=== PATIENT | female | born 1950 | race Caucasian/White ===

== ENCOUNTER 2017-02-19 11:35 | Emergency (ER) | payer OTHER ==
[~2017-02-19] VITALS: Ht 172.7 cm; Wt 79.4 kg
[~2017-02-19 11:35] MED LIST: ACET-1966 PO; ALPR-429 PO; DOCU240C67 PO; DULO60CA56 PO; ESTR50GE2 TD; ESTRADIOL 0.1 MG TOP; FEXO-72 PO; IBUP800T37 PO; NITR-105 PO; OMEP-114 PO; OMEP-125 PO; OXYC-865 PO; PROG100C PO; ROSU20TA23 PO
[2017-02-19] MEDS ORDERED: LEVO100T95 PO (11:45)
--- NOTE | 2017-02-19 11:46 | ER Report ---
History and Physical Time Seen By MD: 11:44 Hx. of Stated Complaint: [place] like she had an episode of SVT at about 1045. HPI/ROS CC: Tachycardia HPI: 66-year-old female with a past medical history of hypertension, hypothyroidism on thyroid replacement, Alternate pathway presents to the emergency Department with onset of tachycardia at approximately 10:30 this morning. It lasted for approximately 45 minutes. She states that the highest rate was 153 bpm. She then tried Valsalva, carotid massage in the parking lot and her pulse decreased to 130 bpm. Upon arrival to the emergency department her heart rate is 86 bpm. She denies any chest pain chest pressure, diaphoresis, nausea vomiting, slight shortness of breath during episode. She has talked with the clasp machine operator and an electro vice president marketing & development and ablation is not warranted at this time. Patient states that she had a glass of wine last night but has not been eating at any salad bar or [employer] restaurants. We discussed her dietary intake for the last 24-48 hours as far as MSG and sulfates. She is not on any other urinary reasons for her onset of tachycardia. She is due for her thyroid lab testing. ROS: 12 point review of systems essentially negative other than what's mentioned in history of present illness. NURSES AND OLD MEDICAL RECORDS: Reviewed PMH: Reviewed SURGICAL HX: Reviewed FAMILY HX: Noncontributory SOCIAL HX: Patient is lives at home she denies smoking alcohol only on occasional basis or illicit drugs. VITAL SIGNS: Reviewed CONSTITUTIONAL: 66-year-old female in no distress at this time. PHYSICAL EXAM: HEENT: Pupils equal round reactive to light and accommodate, EOMI, tympanic membranes pearly white umbo present with good light reflex. Lips dry mucous membranes moist gums nonbleeding uvula midline and rises equally with phonation, oropharynx noninjected, teeth intact. NECK: Neck supple, thyroid not appreciated, anterior and posterior cervical lymphadenopathy not appreciated. Trachea midline and rises equally with phonation. CARDIAC: S1-S2 regular rate rhythm no murmurs rubs or gallops. LUNGS: Lungs clear bilaterally posteriorly in all norman. Good air movement. ABDOMEN: Abdomen soft, nondistended, bowel sounds active in all 4 quadrants, no bruits noted, no CVA tenderness. MUSCULOSKELETAL: Strength 5 out of 5 x 4 extremities, no deformities noted. NEUROLOGIC: Patient alert and oriented by 3 Allergies: Coded Allergies: Sulfa (Sulfonamide Antibiotics) (Verified Allergy, Intermediate, ITCHING, 02/19/17) Home Meds Reported Medications Levothyroxine Sodium (SYNTHROID) 100 Mcg Tablet, 100 MCG PO QDAY 02/19/17 Ibuprofen (IBUPROFEN) 800 Mg Tablet, 1 TAB PO Q8H for PAIN 05/17/13 Progesterone,Micronized (PROGESTERONE) 100 Mg Capsule, 100 MG PO HS, CAPSULE 05/17/13 Estradiol (ESTROGEL) 50 Gm Gel.contact center agent, 50 GM TD HS 05/17/13 Rosuvastatin Calcium (CRESTOR) 20 Mg Tablet, 20 MG PO HS 05/17/13 Discontinued Reported Medications Nitrofurantoin Monohyd/M-Cryst (MACROBID 100 MG CAPSULE) 100 Mg Capsule, 100 MG PO BID for 5 Days, CAPSULE 05/17/13 Oxycodone Hcl/Acetaminophen (PERCOCET 5-325 MG TABLET) 1 Each Tablet, 1-2 EACH PO Q4H Y for PAIN 05/17/13 Constitutional Vital Sign - Last 24 Hours 02/19/17 11:40 Pulse 85 Resp 20 B/P (MAP) 147/92 O2 Delivery Room Air Medical Decision Making Data Points Result Diagram: 02/19/17 1143 02/19/17 1143 Laboratory Hematology Test 02/19/17 11:43 02/19/17 13:30 Red Blood Count 4.97 M/uL (4.17-5.56) Mean Corpuscular Volume 99.2 fL (80.0-96.0) Mean Corpuscular Hemoglobin 33.5 pg (26.0-33.0) Mean Corpuscular Hemoglobin Concent 33.8 g/dL (32.0-36.0) Red Cell Distribution Width 13.7 % (11.5-14.5) Mean Platelet Volume 8.1 fL (7.2-11.1) Neutrophils (%) (Auto) 62.0 % (39.4-72.5) Lymphocytes (%) (Auto) 26.9 % (17.6-49.6) Monocytes (%) (Auto) 8.3 % (4.1-12.4) Eosinophils (%) (Auto) 1.3 % (0.4-6.7) Basophils (%) (Auto) 1.5 % (0.3-1.4) Nucleated RBC Relative Count (auto) 0.1 /100WBC Neutrophils # (Auto) 6.6 K/uL (2.0-7.4) Lymphocytes # (Auto) 2.9 K/uL (1.3-3.6) Monocytes # (Auto) 0.9 K/uL (0.3-1.0) Eosinophils # (Auto) 0.1 K/uL (0.0-0.5) Basophils # (Auto) 0.2 K/uL (0.0-0.1) Nucleated RBC Absolute Count (auto) 0.01 K/uL Peripheral Blood Smear No Y/N Prothrombin Time 12.3 seconds (12.0-14.4) Prothromb Time International Ratio 0.92 Activated Partial Thromboplast Time 30 seconds (23-35) D-Dimer Quantitative (PE/DVT) 0.34 ug/ml (0-0.50) Sodium Level 136 mmol/L (137-145) Potassium Level 3.9 mmol/L (3.5-5.0) Chloride Level 98 mmol/L (98-107) Carbon Dioxide Level 23 mmol/L (22-31) Blood Urea Nitrogen 12 mg/dl (7-18) Creatinine 0.70 mg/dl (0.52-1.04) Glomerular Filtration Rate Calc > 60.0 Random Glucose 80 mg/dl (75-110) Calcium Level 9.1 mg/dl (8.4-10.2) Magnesium Level 2.0 mg/dl (1.7-2.2) Total Bilirubin 0.6 mg/dl (0.2-1.3) Aspartate Amino Transf (AST/SGOT) 49 U/L (0-35) Alanine Aminotransferase (ALT/SGPT) 40 U/L (0-56) Alkaline Phosphatase 98 U/L (0-126) Troponin I < 0.012 ng/ml B-Type Natriuretic Peptide 9 pg/ml (0-100) Total Protein 7.9 gm/dl (6.3-8.2) Albumin 4.4 g/dl (3.5-5.0) Urine Color Straw Urine Clarity Clear Urine pH 5.0 pH (4.8-9.5) Urine Specific [place] 1.002 Urine Protein Negative mg/dL (NEGATIVE) Urine Glucose (UA) Negative mg/dL (NEGATIVE) Urine Ketones 20 mg/dL (NEGATIVE) Urine Blood Negative (NEGATIVE) Urine Nitrite Negative (NEGATIVE) Urine Bilirubin Negative (NEGATIVE) Urine Urobilinogen Negative mg/dL (0.2-1.9) Urine Leukocyte Esterase Negative (NEGATIVE) Urine RBC None /HPF (0-2/HPF) Urine WBC 1 /HPF (0-5/HPF) Urine Squamous Epithelial Cells Few /LPF (</=FEW) Urine Bacteria Few /HPF (NONE-FEW) Urine Mucus None /HPF (NONE-FEW) Chemistry Test 02/19/17 11:43 02/19/17 13:30 White Blood Count 10.7 k/uL (4.5-11.0) Red Blood Count 4.97 M/uL (4.17-5.56) Hemoglobin 16.7 g/dL (12.0-16.0) Hematocrit 49.3 % (34.0-47.0) Mean Corpuscular Volume 99.2 fL (80.0-96.0) Mean Corpuscular Hemoglobin 33.5 pg (26.0-33.0) Mean Corpuscular Hemoglobin Concent 33.8 g/dL (32.0-36.0) Red Cell Distribution Width 13.7 % (11.5-14.5) Platelet Count 356 K/uL (150-450) Mean Platelet Volume 8.1 fL (7.2-11.1) Neutrophils (%) (Auto) 62.0 % (39.4-72.5) Lymphocytes (%) (Auto) 26.9 % (17.6-49.6) Monocytes (%) (Auto) 8.3 % (4.1-12.4) Eosinophils (%) (Auto) 1.3 % (0.4-6.7) Basophils (%) (Auto) 1.5 % (0.3-1.4) Nucleated RBC Relative Count (auto) 0.1 /100WBC Neutrophils # (Auto) 6.6 K/uL (2.0-7.4) Lymphocytes # (Auto) 2.9 K/uL (1.3-3.6) Monocytes # (Auto) 0.9 K/uL (0.3-1.0) Eosinophils # (Auto) 0.1 K/uL (0.0-0.5) Basophils # (Auto) 0.2 K/uL (0.0-0.1) Nucleated RBC Absolute Count (auto) 0.01 K/uL Peripheral Blood Smear No Y/N Prothrombin Time 12.3 seconds (12.0-14.4) Prothromb Time International Ratio 0.92 Activated Partial Thromboplast Time 30 seconds (23-35) D-Dimer Quantitative (PE/DVT) 0.34 ug/ml (0-0.50) Glomerular Filtration Rate Calc > 60.0 Calcium Level 9.1 mg/dl (8.4-10.2) Magnesium Level 2.0 mg/dl (1.7-2.2) Total Bilirubin 0.6 mg/dl (0.2-1.3) Aspartate Amino Transf (AST/SGOT) 49 U/L (0-35) Alanine Aminotransferase (ALT/SGPT) 40 U/L (0-56) Alkaline Phosphatase 98 U/L (0-126) Troponin I < 0.012 ng/ml B-Type Natriuretic Peptide 9 pg/ml (0-100) Total Protein 7.9 gm/dl (6.3-8.2) Albumin 4.4 g/dl (3.5-5.0) Urine Color Straw Urine Clarity Clear Urine pH 5.0 pH (4.8-9.5) Urine Specific [place] 1.002 Urine Protein Negative mg/dL (NEGATIVE) Urine Glucose (UA) Negative mg/dL (NEGATIVE) Urine Ketones 20 mg/dL (NEGATIVE) Urine Blood Negative (NEGATIVE) Urine Nitrite Negative (NEGATIVE) Urine Bilirubin Negative (NEGATIVE) Urine Urobilinogen Negative mg/dL (0.2-1.9) Urine Leukocyte Esterase Negative (NEGATIVE) Urine RBC None /HPF (0-2/HPF) Urine WBC 1 /HPF (0-5/HPF) Urine Squamous Epithelial Cells Few /LPF (</=FEW) Urine Bacteria Few /HPF (NONE-FEW) Urine Mucus None /HPF (NONE-FEW) Coagulation Test 02/19/17 11:43 Prothrombin Time 12.3 seconds Prothromb Time International Ratio 0.92 Activated Partial Thromboplast Time 30 seconds D-Dimer Quantitative (PE/DVT) 0.34 ug/ml Urinalysis Test 02/19/17 13:30 Urine Color Straw Urine Clarity Clear Urine pH 5.0 pH (4.8-9.5) Urine Specific [place] 1.002 Urine Protein Negative mg/dL (NEGATIVE) Urine Glucose (UA) Negative mg/dL (NEGATIVE) Urine Ketones 20 mg/dL (NEGATIVE) Urine Blood Negative (NEGATIVE) Urine Nitrite Negative (NEGATIVE) Urine Bilirubin Negative (NEGATIVE) Urine Urobilinogen Negative mg/dL (0.2-1.9) Urine Leukocyte Esterase Negative (NEGATIVE) Urine RBC None /HPF (0-2/HPF) Urine WBC 1 /HPF (0-5/HPF) Urine Squamous Epithelial Cells Few /LPF (</=FEW) Urine Bacteria Few /HPF (NONE-FEW) Urine Mucus None /HPF (NONE-FEW) EKG/Imaging EKG Interpretation Doses rhythm, ventricular rate 86 bpm, HI interval 168 ms, QRS duration 80 ms, QT 386 ms, QTC is 461 ms. Imaging Chest x-ray: IMPRESSION: 1. No acute cardiopulmonary process. ED Course/Re-evaluation ED Course Labs and chest x-ray with UCG all within normal limits. TSH, free T3, free T4 are pending and will be done in a couple days. Patient has been stable in the emergency department. She is not having any more palpitations or tachycardia. Patient be discharged home follow up with clasp machine operator. And drier transfer car operator for results of her thyroid studies. Re-evaluation Medical decision-making includes but not excluded to Pulmonary edema, SVT, acute coronary syndrome. Decision to Disposition Date: Feb 19, 2017 Decision to Disposition Time: 14:00 Depart Departure Latest Vital Signs Vital Signs Date Time Temp Pulse Resp B/P (MAP) Pulse Ox O2 Delivery O2 Flow Rate FiO2 02/19/17 11:40 85 20 147/92 Room Air Impression: Primary Impression: Supraventricular tachycardia Condition: Improved Disposition: HOME OR SELF-CARE Patient Instructions: Supraventricular Tachycardia (GEN) Additional Instructions: Follow-up with your clasp machine operator and drier transfer car operator. I do not have the results yet for your thyroid studies. They will be available in a couple days. Return to the emergency department if she have any further concerns or Heart rate. I and the staff wanted to thank you for allowing us to take care of your needs today in the emergency department at [facility]. We have tried to answer all of your questions and concerns. Please feel free to return to the emergency department for any further concerns or unanswered questions. FERNANDO STEVENSON MD Feb 19, 2017 11:46
[2017-02-19 12:00] LABS: PLATELET COUNT, AUTOMATED 356 K/uL (150-450)
[2017-02-19 12:15] LABS: INR 0.92
--- NOTE | 2017-02-19 12:26 | EKG ---
FACILITY: [facility] - [place] PATIENT NAME: PHILLIP GALEANO : [id number] MR: [id number] V: [id number] EXAM DATE: ORDERING PHYSICIAN: FERNANDO STEVENSON TECHNOLOGIST: DOROTHY Alexander Reason : CARDIAC Blood Pressure : / mmHG Vent. Rate : 086 BPM Atrial Rate : 086 BPM P-R Int : 168 ms QRS Dur : 088 ms QT Int : 386 ms P-R-T Axes : 070 070 077 degrees QTc Int : 461 ms Sinus rhythm Possible left atrial enlargement Nonspecific ST findings inferolateral leads Confirmed by YENI WATSON ([id number]) on 02/19/2017 12:56:23 PM Referred By: ELVA Confirmed By:YENI WATSON
--- NOTE | 2017-02-19 12:47 | RADIOLOGY IMAGING REPORT ---
FACILITY: [facility] - [place] PATIENT NAME: Amarilys Bunch : 1950 MR: [id number] V: [id number] EXAM DATE: ORDERING PHYSICIAN: FERNANDO STEVENSON TECHNOLOGIST: [place] [facility] [place] Amarilys Bunch : 1950 Visit/Account:[id number] Date of Sevice: 02/19/2017 2 VIEWS CHEST INDICATION: Chest pain COMPARISON: None available FINDINGS: Cardiomediastinal silhouette and pulmonary vessels within normal limits. There is no focal infiltrate or lobar consolidation. There is no pneumothorax or pleural effusion. No nodule. Incidental note of a azygos lobe and fissure. Upper abdomen is unremarkable. No acute bony abnormality. IMPRESSION: 1. No acute cardiopulmonary process. Report Dictated By: Chuckie Buckley at 02/19/2017 12:42 PM Report E-Signed By: Chuckie Buckley at 02/19/2017 12:43 PM WSN:[id number]
[2017-02-19 14:00] VITALS: BP 134/95
== END 2017-02-19 14:13 | disposition home or self-care (01) ==
LOC: ER 11:35
DX: I47.1 Supraventricular tachycardia (principal)
CPT/HCPCS: 71046; 81001; 82040; 82247; 82310; 82374; 82435; 82565; 82947; 83735; 83880; 84075; 84132; 84155; 84295; 84439; 84443; 84450; 84460; 84481; 84484; 84520; 85025; 85379; 85610; 85730; 93005; 99284

== ENCOUNTER → 2017-06-23 | Outpatient (CLI) | payer OTHER ==
[~2017-06-23] MED LIST changes: +LEVO100T95 PO
--- NOTE | 2017-06-23 11:07 | RADIOLOGY IMAGING REPORT ---
FACILITY: [facility] PATIENT NAME: Amarilys Bunch : 1950 MR: [id number] V: [id number] EXAM DATE: ORDERING PHYSICIAN: RODRIGUE CRAWFORD TECHNOLOGIST: Location: [facility] Patient: Amarilys Bunch : 1950 Visit/Account:[id number] Date of Sevice: 06/23/2017 CHEST W/O CONTRAST History: Pulmonary nodule TECHNIQUE: Contiguous axial images were performed through the chest to the level of the adrenal gla nds. No IV contrast was administered. Coronal and sagittal reformatting was also performed. Dose Lowe ring Technique One of the following dose optimization techniques was utilized in the performance of this exam: Autom ated exposure control; adjustment of the mA and/or kV according to the patient's size; or use of an i terative reconstruction technique. Specific details can be referenced in the facility's radiology C T exam operational policy. COMPARISON STUDIES: Two view chest February 19, 2017. Lungs / Pleura: There is a 3 mm noncalcified subpleural nodule lateral aspect left lower lobe best seen on image 73 of series 3. there is a 4 x 2 mm noncalcified subpleural nodule lateral aspect left lower lobe best seen on image 78. . The 2 mm subpleural nodule posterior aspect of the left lower lobe best seen on image 81. There is a 3 mm subpleural nodule lateral aspect left lower lobe best seen on image 84 of series 3. Incidental note of an azygos lobe. Mediastinum/nodes: negative. Heart and vessels: Mild to moderate coronary artery calcifications Musculoskeletal / Body wall: negative. Upper abdomen: The gallbladder is contracted which could be related to a recent meal. IMPRESSION: There are four small noncalcified nodules in the left lower lobe with the largest average measurement of 3 mm. For multiple nodules measuring less than 6 mm, in a low risk patient (minimal or absent smo naveed history, no history of malignancy), no routine followup is recommended. In a high risk patient ( smoking or malignancy history), optional 12 month followup can be obtained. Mild to moderate coronary artery calcifications Gallbladder is contracted which could be related to a recent meal. Correlation with meal history nee ded Report Dictated By: Lien Simental MD at 06/23/2017 10:54 AM Report E-Signed By: Lien Simental MD at 06/23/2017 11:04 AM SHANDAN:[email or web address]
== END ==
LOC: CT 01:29
PROVIDERS: ATTEND Internal Medicine Cardiovascular Disease
DX: I25.10 Atherosclerotic heart disease of native coronary artery without angina pectoris (principal); R91.8 Other nonspecific abnormal finding of lung field
CPT/HCPCS: 71250

== ENCOUNTER 2018-07-19 13:12 | Observation (INO) | payer OTHER ==
[2018-07-19] VITALS (10 sets, daily range): BP systolic 144–158; BP diastolic 82–107
[~2018-07-19] VITALS: Ht 172.7 cm; Wt 83.9 kg
[~2018-07-19 13:12] MED LIST changes: -ALB6.7R INH; -CEPH500T7 PO; -OLME1TAB; -TRAM-420 PO
[2018-07-19] MEDS ORDERED: fentaNYL CITR 100 MCG/2 ML AMP IVP ONE (13:20)
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
[2018-07-19] MEDS ORDERED: PROPOFOL EMUL 10MG/ML 20 ML VL IVP ONE (13:30)
--- NOTE | 2018-07-19 14:18 | RADIOLOGY IMAGING REPORT ---
[place] [facility] [place]IENT NAME: Amarilys Bunch : 1950 MR: [id number] V: [id number] EXAM DATE: ORDERING PHYSICIAN: TAMARA PAEZ TECHNOLOGIST: [place] [facility] [place] Patient: Amarilys Bunch : 1950 Visit/Account:[id number] Date of Sevice: 07/19/2018 XR WRIST 2 VWS LT Indication: deformity Comparison: None Available Findings: Comminuted impacted/displaced intra-articular fracture of the distal radial metaphysis. Displaced ulnar styloid fracture. Soft tissue swelling surrounding the wrist. No evidence of radiopaque foreign body. IMPRESSION: 1. Distal radial and ulnar fractures, as above. Report Dictated By: Chacorta Daly MD at 07/19/2018 2:11 PM Report E-Signed By: Chacorta Daly MD at 07/19/2018 2:12 PM WSN:[email or web address]
--- NOTE | 2018-07-19 14:25 | RADIOLOGY IMAGING REPORT ---
FACILITY: [facility] PATIENT NAME: Amarilys Bunch : 1950 MR: [id number] V: [id number] EXAM DATE: ORDERING PHYSICIAN: TAMARA PAEZ TECHNOLOGIST: Location: [facility] Patient: Amarilys Bunch : 1950 Visit/Account:[id number] Date of Sevice: 07/19/2018 Exam type: XR WRIST 2 VWS LT History: post reduction Comparison: Left wrist performed earlier today. Findings: Two views the left wrist were submitted the left wrist is viewed through a fiberglass cast. Again no leidy are previously described fractures through the ulnar styloid which appears unchanged in alignment and an impacted intra-articular fracture through the distal left radius which has been reduced in im proved anatomic alignment IMPRESSION: 1. Ulnar styloid fracture appears unchanged The comminuted impacted intra-articular fracture to the distal left radius has been reduced in improv ed anatomic alignment Report Dictated By: Lien Simental MD at 07/19/2018 2:16 PM Report E-Signed By: Lien Simental MD at 07/19/2018 2:18 PM WSN:[id number]
[2018-07-19] MEDS ORDERED: DIPHTH/TETANUS/ACEL. PERTUSSIS IM ONLY ONE (14:50)
[2018-07-19] MEDS ORDERED: FAMOTIDINE(*) 20MG/50ML PREMIX 50 ML IVPB ONE (15:05)
[2018-07-19] MEDS ORDERED: ceFAZolin 1 GM VIAL IVP ONE (15:05)
[2018-07-19] MEDS: LR(*) 1000 ML BAG 1,000 ML IV PRN ×2 (15:15→21:12)
[2018-07-19] MEDS ORDERED: fentaNYL CITR 250 MCG/5 ML AMP ONE (15:23)
[2018-07-19] MEDS ORDERED: ONDANSETRON 4 MG/2 ML VIAL ONE (15:24)
[2018-07-19] MEDS ORDERED: PROPOFOL EMUL(*) 10MG/ML 20 ML 20 ML ONE ×2 (15:24→18:23)
[2018-07-19] MEDS ORDERED: LIDOCAINE MPF 1% 5 ML VIAL ONE ×2 (15:24→15:25)
[2018-07-19] MEDS ORDERED: DEXAMETHASONE SOD PHOS 10MG/ML ONE (15:24)
[2018-07-19] MEDS ORDERED: KETAMINE HCL 200 MG/20 ML MDV ONE (15:26)
[2018-07-19] MEDS ORDERED: ROPIVACAINE 0.2% 20 ML VIAL ONE (15:29)
[2018-07-19] MEDS ORDERED: BACITRACIN OINT 15 GM TUBE TP ONE (15:37)
[2018-07-19] MEDS ORDERED: ceFAZolin 1 GM VIAL ONE (15:53)
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
[2018-07-19] MEDS ORDERED: LABETALOL HCL 100 MG/20ML VIAL ONE ×3 (17:20→17:42)
[2018-07-19] MEDS ORDERED: NEOMYCIN/POLYMYX/BACITR 30 GM TP ONE (18:06)
[2018-07-19] MEDS ORDERED: fentaNYL CITR 100 MCG/2 ML AMP ONE ×2 (18:24→19:09)
[2018-07-19] MEDS ORDERED: MORPHINE 50 MG/50 ML PCA BAG IV PRN (19:15)
[2018-07-19] MEDS ORDERED: KCL/D5LR 20 MEQ/1000 ML PREMIX 1,000 ML IV PRN (19:15)
[2018-07-19] MEDS ORDERED: FLUSH 10 ML SYR IVP PRN (19:15)
[2018-07-19] MEDS ORDERED: oxyCODON/ACET (*)5/325MG (CII) 1 TAB TAB PO PRN (19:15)
[2018-07-19] MEDS ORDERED: diphenhydrAMINE 25 MG CAP PO PRN (19:15)
[2018-07-19] MEDS ORDERED: NALOXONE HCL 0.4 MG/ML VIAL IVP PRN (19:15)
[2018-07-19] MEDS ORDERED: ONDANSETRON 4 MG/2 ML VIAL IVP PRN (19:15)
[2018-07-19] MEDS ORDERED: MAGNESIUM CITRATE 300 ML BTL PO PRN (19:15)
[2018-07-19] MEDS ORDERED: PROMETHAZINE 25 MG/ML 1 ML AMP IVP PRN (19:15)
[2018-07-19] MEDS ORDERED: PCA LOCKBOX KEYS XX PRN (19:50)
--- NOTE | 2018-07-19 19:51 | OPERATIVE REPORT 1 ---
EVENT DATE: July 19, 2018 SURGEON: Chuckie Nguyễn MD ANESTHESIOLOGIST: Darwin Ochoa MD ANESTHESIA: General. VACCINE MANAGER: Sundeep Russell PA-C PREOPERATIVE DIAGNOSES 1. Open left distal ulna fracture. 2. Comminuted inter-articular multi-part distal radius fracture involving approximately seven parts. 3. Disruption of the distal radioulnar joint. POSTOPERATIVE DIAGNOSES 1. Open left distal ulna fracture. 2. Comminuted inter-articular multi-part distal radius fracture involving approximately seven parts. 3. Disruption of the distal radioulnar joint. PROCEDURES PERFORMED 1. Incision and drainage open left ulna fracture (94834). 2. Open reduction and internal fixation multi-part inter-articular distal radius fracture (15913). 3. Open reduction and internal fixation ulnar styloid basilar fracture to restore distal radioulnar joint integrity (08642). 4. Intraoperative fluoroscopy for checking position and length of hardware (81002). ESTIMATED BLOOD LOSS Minimal. INTRAVENOUS FLUIDS 1000. TOURNIQUET TIME 103. SPECIMENS No specimens. COMPLICATIONS No complications. IMPLANTS USED Left wide [employer] Geminus plate with additional claw for ulnar volar fragment. In addition, we used 2 cc of InterGro with calcium granules. SUMMARY OF PROCEDURE The patient was brought into the operating room and placed on the OR table in the supine position. She had eaten a protein bar approximately three hours prior to the surgery. She was injured approximately 1-1/2 hours prior to the surgery. She presented to the Emergency Room and was given a reduction as noted in the H and P. She was then taken to the operating room urgently secondary to the open fracture despite her having eaten. Dr. Ochoa undertook the general anesthetic without difficulty. We then prepped and draped the left upper extremity. The open wound was utilized for the incision and extended distally and proximally. Care was taken to identify and protect the dorsal cutaneous nerve. We exposed the ulna fracture and curettaged it, irrigated it, curettaged it again, irrigated it one more time, and then also used a 14-gauge Angiocath to flush above and below the distal soft tissue elements so that we could clear out the DRUJ as well as the wrist joint itself. Once this was complete, we directed our attention to the comminuted inter-articular distal radius fracture. This was a very complex fracture that was extremely short, angulated, and involved a disruption of the distal radioulnar joint by virtue of the basilar open ulnar styloid fracture. We did the standard volar approach, placing a [place] drain on the flexor carpi radialis, exposing the remainder of the tissue by dividing the undersurface of the FCR sheath. The FPL was left on the ulnar side. The pronator quadratus was already destroyed by the fracture. We cleared off the distal radius and used a clamp to pronate it out of the way. We then began to attempt to reassemble the joint surface. Unfortunately, this was very comminuted in multiple parts, so I started by opening up the joint fully so I could get good visualization, and then using joystick K-wires on the elements, I reassembled the joint and then placed transverse subchondral K-wires. Having done this, we then tried to restore the majority of the volar tilt and then placed additional K-wires through the styloid and down into the main shaft fragment. We then placed a Geminus plate, and we tried a couple different ones, but selected the wide left and then began to place K-wires. We checked the C- arm on AP and lateral views as well as tilted lateral views to ensure that we were adequately at the watershed line and also still supporting the fragments. It looked like we would need the claw on the ulnar side. The K-wires were progressively replaced with various different elements of locking hardware, either smooth or threaded depending on the integrity and nature of the dorsal cortex. Before doing this, we had also noted the rather significant absence of cancellous bone undermining the displaced articular fragments, so using the carpal bones as a template, I had placed InterGro with calcium granules up through the defects and then reassembled the volar aspect of the cortex, after which the plate was placed on this. Again, the K-wires were used as guides and then progressively allowed for placement of the distal hardware. We had placed only a single screw proximally, which allowed us to shift the plate back and forth while we were testing it for length. At this point, we then filled the rest of the 2.5 mm screws, leaving the most proximal one open. The reason I left this open is because the plate ended up being applied slightly angulated, and that screw would have been right on the margin of the cortex, which certainly could have been placed, but I did want the hardware left as it was because I certainly did not want to take this apart again. Once we had everything assembled and checked, the x-rays confirming adequacy of reduction, I placed the ulnar claw by doing two back-drilled K-wires and then assembled that as well. We then directed our attention to the distal radioulnar joint. After exposing the fracture site and washing it one more time, I then placed the guidewire for the Micro Acutrak screw and then held the fracture while drilling, after which the screw was advanced until we got good compression, and the DRUJ was restored in stability. The wounds were irrigated. The tourniquet deflated. Bipolar cautery was used where necessary for hemostasis, but we had some difficulty with the bipolar. Her bleeding was not extensive anyhow. All the accessory K-wires were removed after we got good fixation with the plate, and then we closed with nylon. She was given a dry, sterile dressing and a long-arm splint, and she was awakened and transferred to the recovery room. CHEMO
[2018-07-19] MEDS ORDERED: traMADol 50 MG TAB ONE (21:05)
[2018-07-19] MEDS ORDERED: ALB6.7R INH (21:10)
[2018-07-19] MEDS: traMADol 50 MG TAB PO PRN (21:14)
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
[2018-07-19] MEDS ORDERED: ROSU20TA24 PO (22:47)
[2018-07-19] MEDS ORDERED: OMEP-126 PO (22:47)
[2018-07-19] MEDS ORDERED: OLME1TAB (22:47)
[2018-07-19] MEDS: ceFAZolin(*) 1 GM VIAL 1 GM in NS(*) 0.9% 100 ML MINI-BAG 100 ML IVPB SCH (22:58)
[2018-07-19] MEDS: ACETAMINOPHEN 500 MG TAB PO PRN (22:58)
[2018-07-20] VITALS (8 sets, daily range): BP systolic 123–156; BP diastolic 74–91
[2018-07-20] MEDS: traMADol 50 MG TAB PO PRN ×3 (01:22→10:45)
[2018-07-20] MEDS: ACETAMINOPHEN 500 MG TAB PO PRN ×2 (03:08→08:00)
[2018-07-20] MEDS ORDERED: LEVOTHYROXINE SOD 0.1 MG TAB PO SCH (06:00)
[2018-07-20] MEDS ORDERED: CEPH500T7 PO (07:02)
[2018-07-20] MEDS ORDERED: TRAM-420 PO (07:02)
[2018-07-20] MEDS: ceFAZolin(*) 1 GM VIAL 1 GM in NS(*) 0.9% 100 ML MINI-BAG 100 ML IVPB SCH (07:20)
--- NOTE | 2018-07-20 10:18 | NUR ---
Physical Therapy Impression Pt observed ambulating independently in hallway with no mobility needs. OT to follow up for UE needs. Pt safe for DC when medically appropriate. Physical Therapy Goals Patient's Goals
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
--- NOTE | 2018-07-20 11:54 | NUR ---
Occupational Therapy Impression Pt alert and agreeable to OT evaluation. Reports no concerns/questions for OT at this time. Sling provided per Dr. poole. Educated pt on appropriate fit of sling. Pt (I) with ADLs/IADLs. SpO2 WNL on room air during evaluation. No further OT needs. F/u with Dr. Nguyễn in 10-14 days. Occupational Therapy Goals Patient's Goal
[2018-07-20] MEDS ORDERED: ROSUVASTATIN CALCIUM 10 MG TAB PO SCH (21:00)
== END 2018-07-20 07:01 | disposition home or self-care (01) ==
LOC: ER 13:17 → OR 14:59 → MED 20:30 → INTOOBSV 20:30
PROVIDERS: ADMIT Orthopaedic Surgery Hand Surgery; ATTEND Orthopaedic Surgery Hand Surgery
DX: S52.602B Unspecified fracture of lower end of left ulna, initial encounter for open fracture type I or II (principal); S52.572A Other intraarticular fracture of lower end of left radius, initial encounter for closed fracture
CPT/HCPCS: 25605; 25609; 25652; 73100; 73200; 90471; 90715; 96374; 96375; 97165; 99284; G0378; J0690; J1100; J2001; J2405; J2704; J2795; J3010; J3490; J7120; 76000; A4565; C1713

== ENCOUNTER → 2018-07-19 | Outpatient (CLI) | payer OTHER ==
[~2018-07-19] MED LIST changes: +ALB6.7R INH; +CEPH500T7 PO; +OLME1TAB; -OMEP-125 PO; +OMEP-126 PO; -ROSU20TA23 PO; +ROSU20TA24 PO; +TRAM-420 PO
== END ==
LOC: AMB 13:01
DX: M25.532 Pain in left wrist (principal); M21.932 Unspecified acquired deformity of left forearm; V19.9XXA Pedal cyclist (driver) (passenger) injured in unspecified traffic accident, initial encounter
CPT/HCPCS: A0425; A0427